=== PATIENT | male | born 1980 | race Caucasian/White ===

== ENCOUNTER 2017-08-05 21:51 | Emergency (ER) | payer SELFPAY ==
[~2017-08-05] VITALS: Ht 180.3 cm; Wt 51.8 kg
[2017-08-05 22:45] LABS: HEMATOCRIT 38.6 % (38.0-50.0); MCH 32.9 PG (29.0-34.0); MCHC 35.8 G/DL (30.0-36.0); MCV 91.9 FL (86-99); MEAN PLAT.VOLUME 10.6 uM^3 (9.0-12.4); PLATELET COUNT 170 K/uL (156-360); RBC DIS.WIDTH-CV 12.3 % (11.8-14.6); RBC DIS.WIDTH-SD 41.2 % (39-53)
[2017-08-05 22:53] LABS: CHLORIDE 104 mEq/L (99-109); POTASSIUM 3.7 mEq/L (3.7-5.4); SODIUM 139 mEq/L (136-147)
[2017-08-05 22:55] LABS: GLUCOSE 115 mg/dL (70-99)
[2017-08-05 22:56] LABS: ANION GAP 8 MEQ/L (2-14)
[2017-08-05 22:57] LABS: D-DIMER ELISA < 150.00 ng/mLDDU (<230); TOTAL BILIRUBIN 0.4 mg/dL (0.0-1.0)
[2017-08-05 22:59] LABS: ALKALINE PHOSPHATASE 40 IU/L (3-129); GFR ESTIMATE (CALCULATED) 49 mL/min/
[2017-08-05 23:00] LABS: UREA NITROGEN (BUN) 17 mg/dL (9-23)
[2017-08-05 23:02] LABS: LIPASE 34 U/L (1.0-51.0)
[2017-08-05 23:08] LABS: TROP-I INTERPRETATION NEGATIVE; TROPONIN-I < 0.01 ng/mL (0.0-0.30)
[2017-08-05 23:49] LABS: CREATINE KINASE 304 IU/L (1-294)
[2017-08-06 01:18] LABS: GFR ESTIMATE (CALCULATED) > 59 mL/min/
[2017-08-06 01:22] LABS: TROP-I INTERPRETATION NEGATIVE; TROPONIN-I < 0.01 ng/mL (0.0-0.30)
[2017-08-06 02:51] VITALS: BP 97/55
== END 2017-08-06 02:54 | disposition home or self-care (01) ==
LOC: EME → EDBD 21:51 → EME 21:51
PROVIDERS: Emergency Medicine
DX: R07.9 Chest pain, unspecified (principal); F17.200 Nicotine dependence, unspecified, uncomplicated
CPT/HCPCS: 71020; 80053; 82550; 82565; 83690; 84484; 85027; 85379; 93005; 99281; 99285; J2270; J7030